=== PATIENT | female | born 2000 | race Hispanic/Latino ===

== ENCOUNTER 2019-05-29 17:05 | Emergency (ER) | payer SELFPAY ==
[2019-05-29] MEDS ORDERED: Oseltamivir 75 MG CAP ONE (17:20)
[2019-05-29] MEDS ORDERED: Ibuprofen 800 MG TAB ONE (17:20)
== END 2019-05-29 17:23 | disposition home or self-care (01) ==
LOC: BURERS 17:05
DX: J11.1 Influenza due to unidentified influenza virus with other respiratory manifestations (principal); F17.210 Nicotine dependence, cigarettes, uncomplicated
CPT/HCPCS: 99283